=== PATIENT | male | born 1935 | race Caucasian/White ===

== ENCOUNTER 2020-09-23 10:49 | Observation (INO) ==
[~2020-09-23 10:49] MED LIST: Buffered Lidocaine 1% SYRIN 1 ml INTRADERM ONE; Lactated Ringers 1000 ml BAG 1,000 ML IV SCH
[2020-09-23] MEDS ORDERED: ceFAZolin 2 GM in NS PREMIX 2 GM/100 ML BAG IVPB ONE (11:14)
[2020-09-23] MEDS ORDERED: Buffered Lidocaine 1% SYRIN 1 ml INTRADERM ONE (11:14)
[2020-09-23] MEDS ORDERED: Midazolam 2 mg/2 ml VIAL 1 mg/ml 2 ml VIAL (2 mg) ONE (13:51)
[2020-09-23] MEDS ORDERED: fentaNYL 100 mcg/2 ml 50 MCG/ML VIAL ONE (14:30)
[2020-09-23] MEDS ORDERED: EPHEDrine (Pressors) 50 MG/ML VIAL ONE ×2 (14:32→15:39)
[2020-09-23] MEDS ORDERED: Phenylephrine 40 mcg/mL 10mL (400mcg) SYRINGE ONE ×2 (14:41→15:39)
[2020-09-23] MEDS ORDERED: Propofol 10 MG/ML 20 ML BTL ONE (15:39)
[2020-09-23] MEDS ORDERED: Lidocaine 2% PF 5 ML VIAL ONE (15:39)
[2020-09-23] MEDS ORDERED: Magnesium Hydroxide LIQ 30 ML UDC PO PRN (16:39)
[2020-09-23] MEDS ORDERED: diPHENhydraMINE IV 50 MG/ML 1 ml VIAL (BENADRYL) IV PRN (16:39)
[2020-09-23] MEDS ORDERED: diPHENhydraMINE 25 mg TAB PO PRN (16:39)
[2020-09-23] MEDS ORDERED: Morphine 2 MG/ML SYRINGE IV PRN (16:39)
[2020-09-23] MEDS ORDERED: Lactulose 30 ml UDC PO PRN (16:39)
[2020-09-23] MEDS ORDERED: Ondansetron ODT 4 mg TAB 4 MG TAB PO PRN (16:39)
[2020-09-23] MEDS ORDERED: Ondansetron 4 mg VIAL 2 MG/ML 2 ml VIAL IV PRN (16:39)
[2020-09-23] MEDS ORDERED: Naloxone 0.4 mg VIAL 0.4 mg/ml 1 ml VIAL IV PRN (16:49)
[2020-09-23] MEDS ORDERED: HYDROmorphone 1 MG/1 ML SYRINGE IV PRN (16:49)
[2020-09-23] MEDS ORDERED: DiMENhydriNATE IV 50 mg/ml 1 ml VIAL IV PUSH PRN (16:49)
[2020-09-23] MEDS: Lactated Ringers 1000 ml BAG 1,000 ML IV SCH (18:55)
[2020-09-23] MEDS: Magnesium Hydroxide LIQ 30 ML UDC PO SCH (23:10)
[2020-09-23] MEDS: ceFAZolin 1 GM ADVAN 1 GM in NS 0.9% 50 ML 50 ML IVPB SCH (23:17)
[2020-09-24] MEDS: Lactated Ringers 1000 ml BAG 1,000 ML IV SCH (04:47)
[2020-09-24] MEDS: ceFAZolin 1 GM ADVAN 1 GM in NS 0.9% 50 ML 50 ML IVPB SCH ×2 (05:49→14:50)
[2020-09-24 06:19] LABS: Hematocrit 35 % (42-52); Hemoglobin 11.6 g/dL (14.0-18.0); Mean Platelet Volume 9.1 fL (7.4-10.4); Platelet Count 142 10^3/uL (150-450)
[2020-09-24 06:40] LABS: Calcium 8.5 mg/dL (8.6-10.3); EGFR African American 72.6 (>60); Potassium 4.2 mmol/L (3.5-5.0)
[2020-09-24] MEDS: Magnesium Hydroxide LIQ 30 ML UDC PO SCH (08:00)
[2020-09-24] MEDS ORDERED: Vitamin THERAPEUTIC TAB PO SCH (09:00)
[2020-09-24 11:14] VITALS: BP 114/67
== END 2020-09-24 16:35 | disposition home or self-care (01) ==
LOC: OR 10:49 → SSU 10:49
PROVIDERS: ADMIT Orthopaedic Surgery Adult Reconstructive Orthopaedic Surgery; ATTEND Orthopaedic Surgery Adult Reconstructive Orthopaedic Surgery